=== PATIENT | female | born 1980 | race Caucasian/White ===

== ENCOUNTER 2019-01-26 10:15 | Inpatient (IN) | payer OTHER ==
[~2019-01-26] VITALS: Ht 175.3 cm; Wt 128.8 kg
[2019-01-26] MEDS ORDERED: HYDROCHLOROTHIA25 MG PO (11:26)
[2019-01-26] MEDS ORDERED: LISINOPRIL40 MG PO (11:26)
== END 2019-01-31 11:19 | DRG 740 ==
LOC: OB/GYN 01-29 06:41 → O/R 01-29 06:41 → SURH 01-29 10:15 → OB/GYN 01-29 15:55 → SURH 01-29 20:45 → OB/GYN 01-31 11:19
PROVIDERS: ADMIT Obstetrics & Gynecology Gynecologic Oncology
PROC: 0UT20ZZ Resection of Bilateral Ovaries, Open Approach (ICD-10-PCS; 2019-01-29)
PROC: 0UT90ZZ Resection of Uterus, Open Approach (ICD-10-PCS; 2019-01-29)
PROC: 0WJG0ZZ Inspection of Peritoneal Cavity, Open Approach (ICD-10-PCS; 2019-01-29)
PROC: 0UT70ZZ Resection of Bilateral Fallopian Tubes, Open Approach (ICD-10-PCS; principal; 2019-01-29 20:45)
DX: C57.7 Malignant neoplasm of other specified female genital organs (principal); C78.6 Secondary malignant neoplasm of retroperitoneum and peritoneum; D25.1 Intramural leiomyoma of uterus; R55 Syncope and collapse; I10 Essential (primary) hypertension; Z92.21 Personal history of antineoplastic chemotherapy